=== PATIENT | male | born 1950 | race Caucasian/White ===

== ENCOUNTER → 2023-10-20 08:02 | Outpatient (REF) | payer OTHER, SELFPAY | LOC: RCS 08:02 | PROVIDERS: ATTENDING PHYSICIAN Internal Medicine Interventional Cardiology; FAMILY PHYSICIAN Family Medicine | DX: I48.91 Unspecified atrial fibrillation (principal) | CPT/HCPCS: 93306 ==

== ENCOUNTER 2023-11-17 11:59 | Emergency (ER) | payer OTHER, SELFPAY ==
[2023-11-17 12:12] VITALS: BP 127/60
--- NOTE | 2023-11-17 13:54 | ED.GENMED ---
History of Present Illness
General
Chief Complaint: Fall
Time Seen by Provider: 11/17/23 13:17
History of Present Illness
History of Present Illness:
73-year-old male with history of atrial fibrillation, hypertension, and hyperlipidemia presents to the emergency department for evaluation of right shoulder and elbow pain after a fall yesterday. States he fell onto his right side when he slipped
on the stairs, he did not strike his head. The fall occurred yesterday and at this time he denies any complaints of headaches, vision changes, or neck pain. He is having difficulty elevating the shoulder
Past History
Past History
ED Past Medical History: HTN
ED Past Surgical History: None
Social History
Tobacco: Non-smoker
Alcohol: None
Drug: None
Personal:
Living: with family
Employment: Retired
Family History
Family History: Other (Noncontributory)
Review of Systems
Review of Systems
Allergies reviewed?: Yes
All Other Systems: ROS reviewed and negative except as documented in HPI and ROS
Phy Exam
Physical Exam
Physical Exam:
GEN: Well appearing, NAD, WDWN
HEENT: Normocephalic and atraumatic, oral mucosa moist, no scleral icterus
Cardiac: Regular rate
Lung: No respiratory distress, no tachypnea
MSK: Moderate swelling to the right shoulder/deltoid region, ROM markedly limited. No deformity. No tenderness to R elbow, ROM normal. Focal tenderness to R PSIS, no deformity or swelling. No midline L spine tenderness
Skin: Good color, no pallor or jaundice, no rashes
Neuro: AO x3, moves all extremities freely
Psych: Calm, cooperative
Course
Orders/Labs/Results
Orders:
Orders
11/17/23 12:16
CR Elbow - Right Min 3 Views Urgent
Comment:
Reason For Exam: Injury/Trauma
CR Shoulder, Trauma - Right Urgent
Comment:
Reason For Exam: Injury/Trauma
Hip, Right 2-3 Views [CR Hip - RT w/wo Pel 2-3 Vw*] Urgent
Comment:
Reason For Exam: Injury/Trauma
Include a pelvis x-ray?: No
Vital Signs
Initial and Last Documented VS:
Initial Vital Signs
Temp Pulse Resp BP Pulse Ox
98.1 F 54 18 127/60 97
11/17/23 12:12 11/17/23 12:12 11/17/23 12:12 11/17/23 12:12 11/17/23 12:12
Last Documented Vital Signs
Temp Pulse Resp BP Pulse Ox
98.1 F 54 18 127/60 97
11/17/23 12:12 11/17/23 12:12 11/17/23 12:12 11/17/23 12:12 11/17/23 12:12
MDM/Problems Addressed
MDM/Problems Addressed:
Likely a intramuscular hematoma of the right deltoid worsening due to Eliquis. X-ray showed no evidence for osseous abnormality. Patient scheduled orthopedic follow-up in approximately 2 weeks which I feel to be appropriate. Discussed supportive
care
*Critical Care Note
Total Time (30-74mins, 75-104mins- exclusive of procedures): Not Applicable
ED Attending Note
-
Portions of this chart may have been created with voice recognition software.� Occasional wrong word or��sound alike� substitutions may have occurred due to the inherent limitations of voice recognition software.
Discharge Plan
Departure
Patient Disposition: Home (Routine Discharge)
Date of Disposition: 11/17/23
Time of Disposition: 13:57
Patient with high blood pressure during this ER visit?: No
Discharge Problem:
Contusion of right shoulder, Contusion of right hip
Instructions: Hematoma
Prescriptions:
No Action
multivitamin 1 EACH tablet
1 tab PO DAILY
atorvastatin 40 MG tablet
40 mg PO QPM
Eliquis 5 MG tablet
5 mg PO BID
famotidine 40 mg tablet
40 mg PO DAILY
amiodarone [Pacerone] 200 mg Tablet
200 mg PO BID Qty: 40 0RF
Rx Instructions:
Take 200 mg twice a day for 7 days then 1 tablet daily thereafter
Referrals:
Kevin Donahue MD [Active] -
Mary Teran MD [Family Provider] -
Activity Restrictions/Additional Instructions:
I suspect you have an intramuscular hematoma of the right shoulder due to the injury and your blood thinner use. Please ice the shoulder religiously to reduce swelling. Use the sling for at least the next week, make sure to remove the sling for at
least 1 hour/day to allow the shoulder and elbow to stretch
Follow-up with your industrial automation specialist
Interventions
Interventions:
*Risk Screen - Suicide Last Done: 11/17/23 12:12
*General Assessment Last Done: 11/17/23 12:12
*Neglect/Abuse Screening Last Done: 11/17/23 12:12
*ED COVID-19 Vaccine History Last Done: 11/17/23 12:12
*Nursing Disposition Last Done: 11/17/23 14:24
ED-Musculoskeletal Assessment Last Done: 11/17/23 13:23
ED- Neurological Assessment Last Done: 11/17/23 13:23
ED-Skin Assessment Last Done: 11/17/23 13:23
Discharge Date and Time
Discharge Date/Time: 11/17/23 14:24
Print Language: BELARUSIAN
== END 2023-11-17 14:24 | disposition home or self-care (01) ==
LOC: EMR 11:59
PROVIDERS: EMERGENCY PHYSICIAN Student in an Organized Health Care Education/Training Program; FAMILY PHYSICIAN Family Medicine
DX: S70.01XA Contusion of right hip, initial encounter (principal); S40.011A Contusion of right shoulder, initial encounter; W17.89XA Other fall from one level to another, initial encounter; I48.91 Unspecified atrial fibrillation; I10 Essential (primary) hypertension; E78.5 Hyperlipidemia, unspecified; Z79.01 Long term (current) use of anticoagulants
CPT/HCPCS: 99284; 73030; 73080; 73502

== ENCOUNTER 2023-12-31 00:12 | Emergency (ER) | payer OTHER, SELFPAY ==
[2023-12-31 00:14] VITALS: BP 108/56; BMI 25.1
[2023-12-31 00:16] VITALS: BP 108/56
--- NOTE | 2023-12-31 00:20 | ED.GENMED ---
History of Present Illness
<DAYNE Sepulveda - Last Filed: 12/31/23 05:52>
General
Chief Complaint: Blood Sugar Problem
Time Seen by Provider: 12/31/23 00:19
History of Present Illness
History of Present Illness:
Patient is a 73 year old male presenting to the ED complaining of a blood sugar problem and dizziness x 2 hours. He states it happened while he was sitting watching the [employer] game. Patient consumed a couple of alcoholic beverages and at around
10pm he got dizzy diaphoreticand had a bout of confusion. His glucose dropped and family states the confusion happened for a couple minutes but regained train of thought after that. The patient currently feels dizzy and claims he's felt dizzy
before, but he would drink Gatorade and it would alleviate the symptoms. Patient claims he has a sinus infection that he was placed on a neti pot and antibiotics for. Patient denies any chest pain sob palpitations numbness tingling.
Patient has a PMH of esophageal cancer HTN HLD but does denies any history of diabetes. Patient had a couple of alcoholic beverages tonight, but denies any smoking or illicit drug use. He's been cardioverted 2 times.
Past History
<DAYNE Sepulveda - Last Filed: 12/31/23 05:52>
Past History
ED Past Medical History: HTN
ED Past Surgical History: None
Social History
Tobacco: Non-smoker
Alcohol: None
Drug: None
Personal:
Living: with family
Employment: Retired
Family History
Family History: Other (Noncontributory)
Review of Systems
<DAYNE Sepulveda - Last Filed: 12/31/23 05:52>
Review of Systems
Constitutional: Reports no symptoms
Respiratory: Reports no symptoms
Cardiac: Reports no symptoms
Neurological: Reports dizzy
Phy Exam
<Brian Levi [facility] - Last Filed: 12/31/23 05:52>
Physical Exam
Physical Exam:
see physical
Cardiovascular Exam
Cardiovascular Exam: regular rate/rhythm, no edema, no gallop, no JVD and no murmur
Pulmonary Exam
Pulmonary Exam: lungs clear, no respiratory distress, no rales, chest non tender, no crackles, no rhonchi, no stridor, no wheezing and no cough
Course
<Brian Levi [facility] - Last Filed: 12/31/23 05:52>
Orders/Labs/Results
Orders:
Orders
12/31/23 00:20
Cardiac Monitoring- Treatment ONCE
12/31/23 00:21
Complete Blood Count/With Diff Urgent
12/31/23 00:32
EKG [Electrocardiogram (*1)] Urgent
Reason for Study: Vertigo / Dizzy
EKG- Treatment ONCE
12/31/23 00:41
Comprehensive Metabolic Panel Urgent
Comment: REDRAW
Abnormal Lab Results
12/31/23 12/31/23 12/31/23
00:21 00:41 03:15
RBC 4.08 L 10^6/uL
(4.70-6.10)
Hgb 12.4 L g/dL
(13.0-18.0)
Hct 35.6 L %
(39.0-52.0)
Absolute Monos (auto) 0.7 H 10^3/uL
(0.1-0.6)
Monocytes % 11.4 H %
(1.7-9.3)
Sodium 134 L mmol/L
(135-145)
Potassium 3.2 L mmol/L
(3.5-5.1)
Carbon Dioxide 20 L mmol/L
(22-30)
Creatinine 0.5 L mg/dL
(0.7-1.3)
Calcium 7.8 L mg/dl
(8.4-10.2)
ALT 67 H U/L
(0-50)
Total Protein 5.2 L g/dl
(6.3-8.2)
Albumin 3.2 L g/dl
(3.5-5.0)
POC Glucose 117 H mg/dl
(70-99)
12/31/23 00:21
12/31/23 00:41
Vital Signs
Initial and Last Documented VS:
Initial Vital Signs
Pulse Resp BP Pulse Ox
60 20 108/56 100
12/31/23 00:14 12/31/23 00:14 12/31/23 00:14 12/31/23 00:14
Last Documented Vital Signs
Temp Pulse Resp BP Pulse Ox
97.7 F 67 17 115/60 98
12/31/23 03:17 12/31/23 03:30 12/31/23 03:30 12/31/23 03:00 12/31/23 03:30
Lauralt;Micha Gibbons, DO - Last Filed: 12/31/23 03:41>
Orders/Labs/Results
Orders:
Orders
12/31/23 00:20
Cardiac Monitoring- Treatment ONCE
12/31/23 00:21
Complete Blood Count/With Diff Urgent
12/31/23 00:32
EKG [Electrocardiogram (*1)] Urgent
Reason for Study: Vertigo / Dizzy
EKG- Treatment ONCE
12/31/23 00:41
Comprehensive Metabolic Panel Urgent
Comment: REDRAW
Abnormal Lab Results
12/31/23 12/31/23 12/31/23
00:21 00:41 03:15
RBC 4.08 L 10^6/uL
(4.70-6.10)
Hgb 12.4 L g/dL
(13.0-18.0)
Hct 35.6 L %
(39.0-52.0)
Absolute Monos (auto) 0.7 H 10^3/uL
(0.1-0.6)
Monocytes % 11.4 H %
(1.7-9.3)
Sodium 134 L mmol/L
(135-145)
Potassium 3.2 L mmol/L
(3.5-5.1)
Carbon Dioxide 20 L mmol/L
(22-30)
Creatinine 0.5 L mg/dL
(0.7-1.3)
Calcium 7.8 L mg/dl
(8.4-10.2)
ALT 67 H U/L
(0-50)
Total Protein 5.2 L g/dl
(6.3-8.2)
Albumin 3.2 L g/dl
(3.5-5.0)
POC Glucose 117 H mg/dl
(70-99)
12/31/23 00:21
12/31/23 00:41
Vital Signs
Initial and Last Documented VS:
Initial Vital Signs
Pulse Resp BP Pulse Ox
60 20 108/56 100
12/31/23 00:14 12/31/23 00:14 12/31/23 00:14 12/31/23 00:14
Last Documented Vital Signs
Temp Pulse Resp BP Pulse Ox
97.7 F 67 17 115/60 98
12/31/23 03:17 12/31/23 03:30 12/31/23 03:30 12/31/23 03:00 12/31/23 03:30
Lauralt;DAYNE Sepulveda - Last Filed: 12/31/23 05:52>
MDM/Problems Addressed
Differential Diagnosis Includes:
hypoglycemia
MDM/Problems Addressed:
order blood work and get sugar levels back up
<DAYNE Sepulveda - Last Filed: 12/31/23 05:52>
*Critical Care Note
Total Time (30-74mins, 75-104mins- exclusive of procedures): Not Applicable
<Micha Gibbons DO - Last Filed: 12/31/23 03:41>
Update Note
Update Note:
EKG shows sinus bradycardia rate of 64 with PACs present. Left axis deviation present. Prolonged QT at 507 ms corrected. No evidence of acute ischemia present. When compared to previous EKG dated December 02, 2022, sinus bradycardia currently
below replaced sinus rhythm with first-degree AV block then.
ED Attending Note
<DAYNE Sepulveda - Last Filed: 12/31/23 05:52>
-
Portions of this chart may have been created with voice recognition software.� Occasional wrong word or��sound alike� substitutions may have occurred due to the inherent limitations of voice recognition software.
<Micha Gibbons DO - Last Filed: 12/31/23 03:41>
ED Attending Note
Patient seen and examined by attending physician: Yes
I performed the substantive portion of visit, reviewed & personally made and approve the management plan that is documented in note by myself or PRIYA.: Yes
ED Attending Note:
Pleasant 73-year-old male presents with hypoglycemia. He is suffering from esophageal cancer. He does not have a history of diabetes. He does admit to drinking alcohol while watching of the baseball game. He had a few Fritos but the last meal he
ate was at 230. He suspects he has had hypoglycemic events in the recent past because he has had similar feelings that were resolved with food. He states that when he gets dizzy he drinks Gatorade to alleviate the symptoms. Patient is on
antibiotics for a sinus infection at this point. Patient denies any chest pain or shortness of breath. Patient was seen in conjunction with the PA student. I have reviewed and agree with the history and treatment plan presented. On my
independent physical exam, patient is awake, alert, and oriented x3, no acute distress. He does have a port in his right chest. Lungs are clear to auscultation bilaterally without wheezes rales or rhonchi. Abdomen is soft and nontender
nondistended no hepatosplenomegaly.
Discharge Plan
Departure
Patient Disposition: Home (Routine Discharge)
Date of Disposition: 12/31/23
Time of Disposition: 03:36
Patient with high blood pressure during this ER visit?: Yes
Condition: Good
Discharge Problem:
Hypoglycemia
Instructions: Low Blood Sugar, Adult (DC)
Prescriptions:
No Action
atorvastatin 40 MG tablet
40 mg PO QPM
Eliquis 5 MG tablet
5 mg PO BID
ondansetron HCl [Zofran] 8 mg Tablet
8 mg PO Q8H PRN (Reason: nausea )
metoclopramide HCl 5 mg Tablet
5 mg PO TID
ascorbic acid (vitamin C) [Vitamin C] 500 mg Tablet
500 mg PO DAILY
pantoprazole 40 mg Tablet,Delayed Release (Dr/Ec)
40 mg PO DAILY
metoprolol succinate 25 mg Tablet Extended Release 24 Hr
12.5 mg PO BID
albuterol 90 mcg/actuation Aerosol
2 mcg INHALATION Q6
Referrals:
Mary Teran MD [Family Provider] -
Activity Restrictions/Additional Instructions:
It was a pleasure meeting you and taking part in your care. We hope for your continued healing and wellness.
Please read discharge instructions in their entirety. However, they are for general education and may not describe your exact diagnosis at discharge. Information on your ER visit and medical conditions were discussed with you along with appropriate
follow up information...
If indicated, please take your medications as instructed and indicated on discharge paperwork.
Please schedule a follow up appointment as directed. Call to schedule an appointment
Please return to the emergency department with ANY change in, persisting, or worsening of symptoms. If any of your symptoms do not improve, or persist, or become more severe within 6-12 hours, please return to the emergency department for further
care.
Please return to the emergency department if you develop a headache, neck pain/stiffness, fever greater than 100.4F, chest pain, shortness of breath, persistent nausea, vomiting, slurred speech, difficulty walking, numbness/tingling, weakness, signs
of infection or any other symptoms that are worrisome to you.
If you have any questions or concerns please do not hesitate to call the Hospital at or E-mail me directly at [email or web address]
Interventions
Interventions:
*Risk Screen - Suicide Last Done: 12/31/23 00:14
*General Assessment Last Done: 12/31/23 00:14
*Neglect/Abuse Screening Last Done: 12/31/23 00:14
ED- Fall Risk Assessment Last Done: 12/31/23 00:51
*ED COVID-19 Vaccine History Last Done: 12/31/23 00:14
*Nursing Disposition Last Done: 12/31/23 03:57
ED- Neurological Assessment Last Done: 12/31/23 00:24
Discharge Date and Time
Discharge Date/Time: 12/31/23 04:01
Print Language: ARMENIAN
[2023-12-31 00:31] LABS: % Basophils 1.1 % (0-2); % Immature Granulocytes 0.2 % (0-0.5); % Monocytes 11.4 % (1.7-9.3); % Neutrophils 50.3 % (42.2-75.2); Absolute Eosinophils 0.3 10^3/uL (0-0.7); Absolute Monocytes 0.7 10^3/uL (0.1-0.6); Absolute Neutrophils 3.2 10^3/uL (1.4-6.5); Hematocrit 35.6 % (39.0-52.0); Hemoglobin 12.4 g/dL (13.0-18.0); Mean Corp Hgb Conc. 34.8 g/dL (33.0-37.0); Mean Corpuscular Hgb 30.4 pg (27.0-31.0); Mean Corpuscular Volume 87.3 fL (80.0-94.0); Platelet Count 139 10^3/uL (130-400); Red Blood Cell Count 4.08 10^6/uL (4.70-6.10); Red Cell Dist. Width 13.6 % (11.5-14.5); White Blood Cell Count 6.3 10^3/uL (4.8-10.8)
[2023-12-31 00:32] LABS: Absolute Basophils 0.1 10^3/uL (0-0.2); Nucleated Red Blood Cells % 0 % (-)
[2023-12-31 00:43] LABS: Glucose - Point of Care 93 mg/dl (70-99)
[2023-12-31 01:00] VITALS: BP 106/60
[2023-12-31 02:00] VITALS: BP 111/55
[2023-12-31 03:00] VITALS: BP 115/60
--- NOTE | 2023-12-31 03:10 | DOWNTIME ---
There was a [employer] Downtime on 12/31/2023 from 0100 to 12/31/2023 at 0300. Downtime documentation of patient's care, including medication administrations, has been reconciled in the electronic record per guidelines. Refer to the
patient's paper chart under the miscellaneous tab to see printed paper medication records and downtime forms.
[2023-12-31 03:11] LABS: ALT (SGPT) 67 U/L (0-50); AST (SGOT) 52 U/L (17-59); Albumin 3.2 g/dl (3.5-5.0); Alkaline Phosphatase 80 U/L (38-126); Blood Urea Nitrogen 11 mg/dl (9-20); Calcium 7.8 mg/dl (8.4-10.2); Carbon Dioxide 20 mmol/L (22-30); Chloride 102 mmol/L (98-107); Estimated Creatinine Clearance 112 ml/min; Glucose 77 mg/dl (70-99); Potassium 3.2 mmol/L (3.5-5.1); Sodium 134 mmol/L (135-145); Total Bilirubin 0.4 mg/dl (0.2-1.3); Total Protein 5.2 g/dl (6.3-8.2); eGFR > 60.00
[2023-12-31 03:16] LABS: Glucose - Point of Care 117 mg/dl (70-99)
== END 2023-12-31 04:01 | disposition home or self-care (01) ==
LOC: EMR 00:12
PROVIDERS: EMERGENCY PHYSICIAN Student in an Organized Health Care Education/Training Program; FAMILY PHYSICIAN Family Medicine
DX: R42 Dizziness and giddiness (principal); R61 Generalized hyperhidrosis; E16.2 Hypoglycemia, unspecified; J01.90 Acute sinusitis, unspecified; R00.1 Bradycardia, unspecified; C15.9 Malignant neoplasm of esophagus, unspecified; I10 Essential (primary) hypertension; E78.5 Hyperlipidemia, unspecified; Z79.01 Long term (current) use of anticoagulants
CPT/HCPCS: 99283; 80053; 82962; 85025; 93005

== ENCOUNTER → 2024-01-09 10:44 | Outpatient (REF) | payer OTHER, SELFPAY | LOC: HWRAD 10:44 | PROVIDERS: ATTENDING PHYSICIAN Family Medicine | DX: C15.5 Malignant neoplasm of lower third of esophagus (principal); R09.89 Other specified symptoms and signs involving the circulatory and respiratory systems | CPT/HCPCS: 71046 ==

== ENCOUNTER → 2024-01-23 09:57 | Outpatient (REF) | payer OTHER, SELFPAY | LOC: HWRAD 09:57 | PROVIDERS: ATTENDING PHYSICIAN Chiropractor; FAMILY PHYSICIAN Family Medicine | DX: M54.6 Pain in thoracic spine (principal); R07.82 Intercostal pain; M53.2X7 Spinal instabilities, lumbosacral region | CPT/HCPCS: 71111; 72072; 72110 ==

== ENCOUNTER 2024-08-11 00:53 | Inpatient (IN) | payer OTHER, SELFPAY ==
[2024-08-10] VITALS (20 sets, daily range): BP systolic 93–159; BP diastolic 64–90; BMI 24.0
[2024-08-10 17:04] LABS: % Basophils 0.4 % (0-2); % Eosinophils 2.5 % (0-6); % Immature Granulocytes 0.8 % (0-0.5); % Lymphocytes 21.6 % (20.5-51.1); % Monocytes 9.9 % (1.7-9.3); % Neutrophils 64.8 % (42.2-75.2); Absolute Eosinophils 0.1 10^3/uL (0-0.7); Absolute Monocytes 0.5 10^3/uL (0.1-0.6); Absolute Neutrophils 3.1 10^3/uL (1.4-6.5); Hematocrit 41.8 % (39.0-52.0); Hemoglobin 14.6 g/dL (13.0-18.0); Mean Corp Hgb Conc. 34.9 g/dL (33.0-37.0); Mean Corpuscular Hgb 32.2 pg (27.0-31.0); Mean Corpuscular Volume 92.1 fL (80.0-94.0); Mean Platelet Volume 10.2 fL (7.4-10.4); Nucleated Red Blood Cells % 0 % (-); Platelet Count 130 10^3/uL (130-400); Red Blood Cell Count 4.54 10^6/uL (4.70-6.10); Red Cell Dist. Width 15.3 % (11.5-14.5); White Blood Cell Count 4.8 10^3/uL (4.8-10.8)
[2024-08-10 17:07] LABS: APTT 26.1 Sec (23.4-35.0); INR 1.12; PT 14.7 Sec (11.4-14.6)
[2024-08-10 17:17] LABS: ALT (SGPT) 163 U/L (0-50); AST (SGOT) 104 U/L (17-59); Albumin 2.8 g/dl (3.5-5.0); Alkaline Phosphatase 102 U/L (38-126); Blood Urea Nitrogen 12 mg/dl (9-20); Calcium 8.2 mg/dl (8.4-10.2); Carbon Dioxide 28 mmol/L (22-30); Chloride 104 mmol/L (98-107); Glucose 98 mg/dl (70-99); Potassium 5.2 mmol/L (3.5-5.1); Sodium 134 mmol/L (135-145); Total Bilirubin 0.5 mg/dl (0.2-1.3); Total Protein 4.6 g/dl (6.3-8.2); eGFR > 60.00
[2024-08-10 17:22] LABS: Troponin I < 0.012 ng/ml
--- NOTE | 2024-08-10 18:38 | ED.GENMED ---
History of Present Illness
<YVON Lau - Last Filed: 08/11/24 00:17>
General
Chief Complaint: Chest Pain
Source: patient and spouse
Exam Limitations: none
Time Seen by Provider: 08/10/24 17:58
Nursing documentation reviewed up to this point in time: agreed with
History of Present Illness
History of Present Illness:
Patient is a 74-year-old male with past medical history of A-fib on Eliquis, hypertension hyperlipidemia esophageal cancer. Patient had initial chemoradiation and then surgery in 2022 however is presently also getting chemo again scheduled for last
treatment next week. Patient reports he was sleeping and then was awoken by chest pain in his anterior chest in his anterior neck around 1 PM. He does have pain when he takes deep breath. He h however denies any shortness of breath. He denies
any injury. He denies any recent illness fevers or cough.
He had a previous cardioversion in 2022 for A-fib. HE is on Eliquis and has not skipped a dose.
Past History
<YVON Lau - Last Filed: 08/11/24 00:17>
Past History
ED Past Medical History: HTN
ED Past Surgical History: None
Social History
Tobacco: Non-smoker
Alcohol: None
Drug: None
Personal:
Living: with family
Employment: Retired
Family History
Family History: Other (Noncontributory)
Review of Systems
<YVON Lau - Last Filed: 08/11/24 00:17>
Review of Systems
Allergies reviewed?: Yes
All Other Systems: ROS reviewed and negative except as documented in HPI and ROS
Constitutional: Reports no symptoms; Denies fever, fatigue or chills
Respiratory: Reports no symptoms and other (anterior chest pain with deep breath ); Denies trouble breathing
Cardiac: Reports chest pain
ABD/GI: Reports no symptoms; Denies abdominal pain, nausea or vomiting
: Reports no symptoms
Musculoskeletal: Reports no symptoms
Skin: Reports no symptoms
Neurological: Reports no symptoms
Psychiatric: Reports no symptoms
Phy Exam
<YVON Lau - Last Filed: 08/11/24 00:17>
General Physical Exam
General Presentation: no apparent distress
General age: appears stated age
General Skin: warm and dry
General Habitus: elderly
General Mental: alert
General Hydration: dry mucous membranes
Cardiovascular Exam
Cardiovascular Exam: irregularly irregular and tachycardia
Pulmonary Exam
Pulmonary Exam: lungs clear and no respiratory distress
Neurological Exam
Neurological Exam: alert and oriented x3
Musculoskeletal Exam
Musculoskeletal Exam: full ROM
Skin Exam
Skin Exam: normal color and warm/dry
Psychiatric Exam
Psychiatric Exam: normal mood/affect
Scores
<YVON Lau - Last Filed: 08/11/24 00:17>
Heart Score for Chest Pain Patients
STEMI patient?: Not applicable
Course
<YVON Lau - Last Filed: 08/11/24 00:17>
Orders/Labs/Results
Orders:
Orders
08/10/24 16:36
EKG [Electrocardiogram (*1)] Urgent
Reason for Study: Chest Pain
EKG- Treatment ONCE
08/10/24 16:50
Complete Blood Count/With Diff Urgent
Comprehensive Metabolic Panel Urgent
Protime/PTT Urgent
Troponin I Urgent
08/10/24 18:40
CT Chest PE Study Urgent
Comment:
Reason For Exam: cp hx of esophageal cancer/chemo
0.9% Sodium Chloride 1000 ml [Nss] 1,000 ml IV BOLUS
08/10/24 20:21
EKG [Electrocardiogram (*1)] Urgent
Reason for Study: Chest Pain
EKG- Treatment ONCE
Troponin I Urgent
08/10/24 20:29
Acetaminophen 1000MG/100Ml [Ofirmev] 1,000 mg in 100 ml IV ONCE
Acetaminophen IV Indication:: ED Narcotic Naive Pt-ONCE
08/10/24 22:57
Etomidate [Amidate 20 mg] 10 mg IV NOW STA
08/10/24 23:00
Flush (0.9% Sodium Chloride) [Flush (Nss)] See Dose Instructions IV PER PROTOCOL
08/10/24 23:15
Electrocardiogram (*1) Urgent
Reason for Study: Atrial Fibrillation
EKG- Treatment ONCE
08/11/24 00:00
Admit/Transfer Patient As Directed
Co-Sign Provider:
Level of Care: Inpatient admission
Assign to:: IVU
Physician / Group: Josefina Cummins
Diagnosis: atrial fibrillation RVR, hyperkalemia
Reason for Hospitalization: atrial fibrillation RVR, hyperkalemia
Expected length of stay greater than two midnights?: Yes
ELOS- Estimated Length of Stay in days: 3
I certify the patient meets the requirements for IP care: Yes
08/11/24 00:02
PRN Pain Medication Management As Directed
May give lesser potent ordered pain med per pt: Yes
preference::
Protocol:: Medication orders for pain may be administered in a
manner that supports deferring to patient preference
when the pt is:
- Requesting an ordered lesser potent pain medication.
Least to most potent pain medications are defined
as: acetaminophen < NSAID < tramadol < opioids
(morphine, oxycodone, hydromorphone).
- Requesting a lesser dose of the same medication IF
ORDERED.
- Requesting a less intrusive route of administration
if both routes are prescribed by the provider (PO <
IV).
08/11/24 00:04
Code Status As Directed
Resuscitation Status: Full Code
08/11/24 00:15
Diltiazem 125 mg/125 ml Nss [Cardizem] 125 mg in 125 ml IV PER PROTOCOL
Initial dose in mg/hr, then titrate:: 5
Titrate to keep:: Heart rate 80-100 bpm
Titrate by mg/hr:: 5 mg/hr
Frequency of titrations (minutes):: 15
Maximum dose in mg/hr:: 15
Abnormal Lab Results
08/10/24
16:50
RBC 4.54 L 10^6/uL
(4.70-6.10)
MCH 32.2 H pg
(27.0-31.0)
RDW 15.3 H %
(11.5-14.5)
Absolute Lymphs (auto) 1.0 L 10^3/uL
(1.2-3.4)
Immature Gran % 0.8 H %
(0-0.5)
Monocytes % 9.9 H %
(1.7-9.3)
PT 14.7 H Sec
(11.4-14.6)
Sodium 134 L mmol/L
(135-145)
Potassium 5.2 H mmol/L
(3.5-5.1)
Creatinine 0.5 L mg/dL
(0.7-1.3)
Calcium 8.2 L mg/dl
(8.4-10.2)
AST 104 H U/L
(17-59)
ALT 163 H U/L
(0-50)
Total Protein 4.6 L g/dl
(6.3-8.2)
Albumin 2.8 L g/dl
(3.5-5.0)
08/10/24 16:50
08/10/24 16:50
Vital Signs
Initial and Last Documented VS:
Initial Vital Signs
Temp Pulse Resp Pulse Ox
97.8 F 60 18 96
08/10/24 16:37 08/10/24 16:37 08/10/24 16:37 08/10/24 16:37
Last Documented Vital Signs
Temp Pulse Resp BP Pulse Ox
97.9 F 114 10 100/79 96
08/11/24 00:00 08/11/24 00:00 08/11/24 00:00 08/11/24 00:00 08/11/24 00:00
Practice Advisor consulted with Physician
Practice Advisor consulted with physician?: Yes
Name of Physician Consulted: favio
<Donald Stahl MD - Last Filed: 08/10/24 23:17>
Orders/Labs/Results
Orders:
Orders
08/10/24 16:36
EKG [Electrocardiogram (*1)] Urgent
Reason for Study: Chest Pain
EKG- Treatment ONCE
08/10/24 16:50
Complete Blood Count/With Diff Urgent
Comprehensive Metabolic Panel Urgent
Protime/PTT Urgent
Troponin I Urgent
08/10/24 18:40
CT Chest PE Study Urgent
Comment:
Reason For Exam: cp hx of esophageal cancer/chemo
0.9% Sodium Chloride 1000 ml [Nss] 1,000 ml IV BOLUS
08/10/24 20:21
EKG [Electrocardiogram (*1)] Urgent
Reason for Study: Chest Pain
EKG- Treatment ONCE
Troponin I Urgent
08/10/24 20:29
Acetaminophen 1000MG/100Ml [Ofirmev] 1,000 mg in 100 ml IV ONCE
Acetaminophen IV Indication:: ED Narcotic Naive Pt-ONCE
08/10/24 22:57
Etomidate [Amidate 20 mg] 10 mg IV NOW STA
08/10/24 23:00
Flush (0.9% Sodium Chloride) [Flush (Nss)] See Dose Instructions IV PER PROTOCOL
08/10/24 23:15
Electrocardiogram (*1) Urgent
Reason for Study: Atrial Fibrillation
EKG- Treatment ONCE
08/11/24 00:00
Admit/Transfer Patient As Directed
Co-Sign Provider:
Level of Care: Inpatient admission
Assign to:: IVU
Physician / Group: Josefina Cummins
Diagnosis: atrial fibrillation RVR, hyperkalemia
Reason for Hospitalization: atrial fibrillation RVR, hyperkalemia
Expected length of stay greater than two midnights?: Yes
ELOS- Estimated Length of Stay in days: 3
I certify the patient meets the requirements for IP care: Yes
08/11/24 00:02
PRN Pain Medication Management As Directed
May give lesser potent ordered pain med per pt: Yes
preference::
Protocol:: Medication orders for pain may be administered in a
manner that supports deferring to patient preference
when the pt is:
- Requesting an ordered lesser potent pain medication.
Least to most potent pain medications are defined
as: acetaminophen < NSAID < tramadol < opioids
(morphine, oxycodone, hydromorphone).
- Requesting a lesser dose of the same medication IF
ORDERED.
- Requesting a less intrusive route of administration
if both routes are prescribed by the provider (PO <
IV).
08/11/24 00:04
Code Status As Directed
Resuscitation Status: Full Code
08/11/24 00:15
Diltiazem 125 mg/125 ml Nss [Cardizem] 125 mg in 125 ml IV PER PROTOCOL
Initial dose in mg/hr, then titrate:: 5
Titrate to keep:: Heart rate 80-100 bpm
Titrate by mg/hr:: 5 mg/hr
Frequency of titrations (minutes):: 15
Maximum dose in mg/hr:: 15
Abnormal Lab Results
08/10/24
16:50
RBC 4.54 L 10^6/uL
(4.70-6.10)
MCH 32.2 H pg
(27.0-31.0)
RDW 15.3 H %
(11.5-14.5)
Absolute Lymphs (auto) 1.0 L 10^3/uL
(1.2-3.4)
Immature Gran % 0.8 H %
(0-0.5)
Monocytes % 9.9 H %
(1.7-9.3)
PT 14.7 H Sec
(11.4-14.6)
Sodium 134 L mmol/L
(135-145)
Potassium 5.2 H mmol/L
(3.5-5.1)
Creatinine 0.5 L mg/dL
(0.7-1.3)
Calcium 8.2 L mg/dl
(8.4-10.2)
AST 104 H U/L
(17-59)
ALT 163 H U/L
(0-50)
Total Protein 4.6 L g/dl
(6.3-8.2)
Albumin 2.8 L g/dl
(3.5-5.0)
08/10/24 16:50
08/10/24 16:50
Vital Signs
Initial and Last Documented VS:
Initial Vital Signs
Temp Pulse Resp Pulse Ox
97.8 F 60 18 96
08/10/24 16:37 08/10/24 16:37 08/10/24 16:37 08/10/24 16:37
Last Documented Vital Signs
Temp Pulse Resp BP Pulse Ox
97.9 F 114 10 100/79 96
08/11/24 00:00 08/11/24 00:00 08/11/24 00:00 08/11/24 00:00 08/11/24 00:00
Procedures
<YVON Lau - Last Filed: 08/11/24 00:17>
Moderate Sedation
ASA Risk Score: Class III
Chart and allergies reviewed: Yes
Consent for anesthesia obtained: Yes
Time out completed (validating right patient & procedure): Yes
Moderate Sedation Start Time(when first medication is given): 23:10
History of difficult intubation: No
Airway free of obstruction: Yes
Patient has a gag reflex: Yes
Patient is able to open mouth: Yes
Patient has no dentures: Yes
Patient has no loose teeth: Yes
Medication administered by Provider during Moderate Sedation: Other (etomidate )
Total dose administered: 7
Time drug administered: 23:09
Moderate Sedation Procedure End Time: 23:25
Cardioversion
Indication:: Afib
Performed by:: Favio/ Myke
Synchronized?: Yes
Energy Used: 200 joules
Number of attempts: 2
Successful?: No
ASA Risk Score: Class III
Any reaction or bad outcome to prior sedation/anesthesia?: No history of a reaction
Sedation level to be attained: moderate
Chart and allergies reviewed: Yes
Patient reassessed prior to sedation: Yes
Time out completed at (validating right patient & procedure): 23:10
History of difficult intubation: No
Airway free of obstruction: Yes
Patient has a gag reflex: Yes
Patient is able to open mouth: Yes
Patient has no dentures: Yes
Patient has no loose teeth: Yes
Medication administered by Provider during Moderate Sedation: Other (etomidate )
Total dose administered: 7
Time drug administered: 23:09
Start Time: 23:10
Stop Time: 23:25
<YVON Lau - Last Filed: 08/11/24 00:17>
MDM/Problems Addressed
Differential Diagnosis Includes:
Not limited to ACS, PE, rapid A-fib dehydration
MDM/Problems Addressed:
As documented patient is a 74-year-old male with past medical history of A-fib esophageal cancer currently being treated chemotherapy presents for chest pain. Patient reports chest pain is anterior chest anterior neck started at 1 PM while
sleeping. Patient reports pain is worse with taking a deep breath. He presents very pleuritic. Though he does have a history of A-fib he is not aware when he goes in it. He did present here in A-fib. He is anticoagulated. He has had 2 negative
cardiac troponins.; With tachycardia and poor chest pain CT ordered due PE risk associate with his cancer . CAT scan shows no upper lobe PE no central PE there is interstitial thickening and bronchial opacity consistent mucous plugging in the
right posterior lung base there is scarring in the right middle lobe there is a parenchymal consolidation in the right posterior lobe which could represent atelectasis or pneumonia. Patient however has no white count no fever.
Family reports that patient was previously cardioverted in 2022 however 2 weeks ago they believe he may have went back into A-fib as his GI doctor was concerned about this during an exam.
Patient remains in A-fib tachycardic despite 1 L of fluids. Patient's blood pressure 99/65 we will hold off on metoprolol and Cardizem. Patient was evaluated by ED physician as discussed will give another 250 bolus. Patient will need admission
for continued pleuritic pain. Patient's second cardiac troponin is negative. He did receive Ofirmev which did improve his symptoms of chest discomfort.
Will hold off on antibx at this time however will discuss with admitting hospitalist.
As discussed with admitting hospitalist attempted cardioversion x 2 however unsuccessful patient remains in A-fib however blood pressure improved.
Chronic conditions affecting care:
Esophageal cancer on chemotherapy, atrial fibrillation on Eliquis
<YVON Lau - Last Filed: 08/11/24 00:17>
*Pulse Oximetry
Patient hypoxic: no
*EKG
Interpreted by ED Provider?: Yes
Heart Rate: 107
Rate: tachycardiac
Rhythm: a-fib
Ischemia: non-specific ST changes
*Critical Care Note
Total Time (30-74mins, 75-104mins- exclusive of procedures): Not Applicable
ED Attending Note
<YVON Lau - Last Filed: 08/11/24 00:17>
-
Portions of this chart may have been created with voice recognition software.� Occasional wrong word or��sound alike� substitutions may have occurred due to the inherent limitations of voice recognition software.
<Donald Stahl MD - Last Filed: 08/10/24 23:17>
ED Attending Note
Patient seen and examined by attending physician: Yes
I performed the substantive portion of visit, reviewed & personally made and approve the management plan that is documented in note by myself or PRIYA.: Yes
ED Attending Note:
I have seen and evaluated the patient with a [id number] encounter. I have spoken to the [HYDROMETEOROLOGIST] and involved in the medical history, the physical exam, medical decision making.
Evaluation and management service: agree unless noted differently below.
Results interpretation: agree unless noted differently below.
74-year-old man presenting to the emergency department with chest pain. He does have a history of esophageal cancer on chemotherapy, A-fib on Eliquis. States that he did a pleuritic chest pain around 1 PM. Denies any shortness of breath. No
nausea or vomiting. Has not missed doses of his Eliquis. It is not positional it is not pleuritic. He is never had this pain before. During my evaluations patient's heart rate on the monitor is anywhere from the 1 teens to the 150s. He is in
A-fib. Exam does show mild edema bilaterally. No significant pulmonary lung exam findings. Concern for PE given patient's history. Could be atypical ACS versus pulmonary edema. Patient is not symptomatic from his A-fib so less likely to be
contributing. Blood work obtained was unremarkable. Will obtain delta troponin. Will obtain CT PE. Will hold off rate control until PE scan is obtained as he is asymptomatic.
CT scan is negative for PE. Does have possible pneumonia as well as pleural effusion. Patient is afebrile with normal white count so we will hold off on antibiotics. Patient will need admission. On repeat evaluation patient is now hypotensive
with systolic in the 90s and heart rate A-fib in the 130s. We did give additional IV fluids with no response. after shared decision making we will proceed with cardioversion. Unfortunately cardioversion x2 unsuccesful. He did appear to have a
pause with a few sinus beats and PACs but then went back into afib. He did receive IVF during procedure. pt BP is much improved in the 120s and HR has decreased to the low 100s. Pt remains asymptomatic. Please see note above.
Discharge Plan
Departure
Patient Disposition: Admit
Date of Disposition: 08/10/24
Time of Disposition: 22:35
Admit to: Telemetry
Admit to doctor: hospitalist
Presentation/result/management discussed w/ accepting MD/DO: Hospitalist
Patient with high blood pressure during this ER visit?: Yes
Condition: Fair
Covid-19: Not Applicable
Discharge Problem:
Chest pain, Atrial fibrillation
Prescriptions:
No Action
atorvastatin 40 MG tablet
40 mg PO QPM
Eliquis 5 MG tablet
5 mg PO BID
ondansetron HCl [Zofran] 8 mg Tablet
8 mg PO Q8H PRN (Reason: nausea )
ascorbic acid (vitamin C) [Vitamin C] 500 mg Tablet
500 mg PO DAILY
metoprolol succinate 25 mg Tablet Extended Release 24 Hr
12.5 mg PO BID
albuterol 90 mcg/actuation Aerosol
2 mcg INHALATION Q6
prochlorperazine maleate [Compazine] 10 mg Tablet
10 mg PO Q6H PRN (Reason: nausea/vomiting )
docusate sodium [Colace] 100 mg Capsule
100 mg PO DAILY
dexamethasone 8 mg tablet
8 mg PO BID
Rx Instructions:
to be taken on days 2, 3 and 4 post chemo
Referrals:
Mary Teran MD [Family Provider] -
Interventions
Interventions:
*Risk Screen - Suicide Last Done: 08/10/24 16:37
*General Assessment Last Done: 08/10/24 16:37
*Neglect/Abuse Screening Last Done: 08/10/24 16:37
*ED- Fall Risk Assessment Last Done: 08/10/24 18:32
*ED COVID-19 Vaccine History Last Done: 08/10/24 16:37
ED- Cardiac Assessment Last Done: 08/10/24 18:42
Discharge Date and Time
Print Language: CITIZEN [place]
[2024-08-10] MEDS: NSS 1000 IV (18:50)
[2024-08-10] MEDS: OFIRMEV 100 IV (20:55)
[2024-08-10 20:58] LABS: Troponin I < 0.012 ng/ml
[2024-08-10] MEDS: AMIDATE 20 MG 10 MG IV (23:02)
--- NOTE | 2024-08-10 23:18 | HPS.HSE ---
Family Physician
-
Family Physician: Mary Teran
Chief Complaint
-
chest pain
History of Present Illness
Patient is a 74-year old male with past medical history significant for paroxysmal atrial fibrillation, Hx melanoma, Hx CLL, esophageal cancer, essential hypertension and hyperlipidemia who presented to [facility] ED for evaluation of acute onset chest
pain. Patient reports being woken with chest pain this afternoon around 1300. Chest pain located anterior midsternal and base of neck, worse with deep breathing, does not radiate. Patient denies any recent illness, fevers, chills, cough, shortness
of breath, chest pain, nausea, vomiting, constipation, diarrhea or urinary symptoms.
Medical History
Past Medical History
Past Medical History: Reports Other
Additional Past Medical History:
Paroxysmal atrial fibrillation
History of melanoma
History of CLL
esophageal cancer
Essential hypertension
Hyperlipidemia
Past Surgical History: Reports Other
Additional Past Surgical History:
Shoulder repair October 2020 for rotator cuff
Cardioversion December 2020 and September 2022
esophagectomy with gastric pull-through
Social History
Tobacco: Non-smoker
Alcohol: Occasional
Drug: None
Personal:
Living: With Family
Family History
Family History: Other (Father had heart problems, mother had colon cancer)
Allergies / Home Medications
Allergies reflects when Allergies were last updated in Me[employer].
Home Medications with original date entered in Me[employer]
Allergy/Medication List:
Allergies
Allergy/AdvReac Type Severity Reaction Status Date / Time
No Known Allergies Allergy Verified 12/31/23 00:27
Home Medications
apixaban 5 mg tablet (Eliquis) 5 mg PO BID blood thinner 10/11/20
atorvastatin 40 mg tablet 40 mg PO QPM High Cholesterol 10/11/20
albuterol 90 mcg/actuation aerosol inhaler 2 mcg inhalation Q6 12/31/23
ascorbic acid (vitamin C) 500 mg tablet (Vitamin C) 500 mg PO DAILY 12/31/23
metoprolol succinate 25 mg tablet,extended release 24 hr 12.5 mg PO BID 12/31/23
ondansetron HCl 8 mg tablet 8 mg PO Q8H PRN nausea 12/31/23
dexamethasone 8 mg PO BID 08/10/24
docusate sodium 100 mg capsule (Colace) 100 mg PO DAILY 08/10/24
prochlorperazine maleate 10 mg tablet (Compazine) 10 mg PO Q6H PRN nausea/vomiting 08/10/24
Review of Systems
-
History Source: Patient
Constitutional: Reports No Symptoms
EENT: Reports No Symptoms
Respiratory: Reports No Symptoms
Cardiac: Reports Chest Pain
Abdomen/GI: Reports No Symptoms
: Reports No Symptoms
Musculoskeletal: Reports No Symptoms
Skin: Reports No Symptoms
Neurological: Reports No Symptoms
Endocrine: Reports No Symptoms
Hematologic/Lymphatic: Reports No Symptoms
Psych: Reports No Symptoms
Physical Exam
Vital Signs
Vital Signs
Temp Pulse Resp BP Pulse Ox
97.8 F 130 23 99/75 99
08/10/24 16:37 08/10/24 22:17 08/10/24 22:17 08/10/24 22:17 08/10/24 22:17
Physical Exam
General: Well Developed, Well Nourished, No Apparent Distress, Comfortable and Conversant
HEENT: NormoCephalic, Moist mucous membranes, Atraumatic, Broxton Conjunctivae, Nose Appears Normal and Ears Appear Normal
Respiratory: Clear
Cardiac: S1/S2, Irregular Rhythm and Tachycardia
Breast: Deferred by me
GI: Soft, Non Tender, Non Distended and Normal Bowel Sounds
Rectal: Deferred by Provider
Genito-urinary: Deferred by me
Musculoskeletal: No Clubbing, No Cyanosis and No Edema
Skin: Warm and IV/Catheter Site
Neuro: Awake, Alert, AO x 3 and Nonfocal/grossly intact
Psych: Calm and Intact Judgment/Insight
Laboratory Results
-
08/10/24 16:50
08/10/24 16:50
Laboratory Results
PT 14.7 Sec (11.4-14.6) H 08/10/24 16:50
INR 1.12 08/10/24 16:50
APTT 26.1 Sec (23.4-35.0) 08/10/24 16:50
Total Bilirubin 0.5 mg/dl (0.2-1.3) 08/10/24 16:50
AST 104 U/L (17-59) H 08/10/24 16:50
ALT 163 U/L (0-50) H 08/10/24 16:50
Alkaline Phosphatase 102 U/L (38-126) 08/10/24 16:50
Troponin I < 0.012 ng/ml 08/10/24 20:21
Data Reviewed
-
CT Scan: Report Reviewed by me
Medical Tests (Nuc Med, Echo, EKG etc): Report Reviewed by me
Lab Data: Labs Reviewed by me
Impression/Plan
-
IMPRESSION/PLAN:
#chest pain
#Paroxysmal atrial fibrillation RVR
cardioversion attempted x2
EKG: ATRIAL FIBRILLATION WITH RAPID VENTRICULAR RESPONSE WITH PREMATURE VENTRICULAR OR ABERRANTLY CONDUCTED COMPLEXES
LOW VOLTAGE QRS
CANNOT RULE OUT ANTERIOR INFARCT , AGE UNDETERMINED
Chest CT: Respiratory motion degradation results in nondiagnostic assessment in the left lower lobe with beyond the segmental level as result of a misregistration artifact. There is also mild
respiratory motion degradation in the right lower lobe, without evidence of pulmonary embolism with confidence to the proximal subsegmental divisions; nondiagnostic assessment
of the more distal subsegmental divisions.
No upper lobe pulmonary embolism identified, bilaterally.
No central pulmonary embolism.
Pulmonary artery branching order level of the most proximal pulmonary embolism: N/A
Previous esophagectomy with gastric pull-through.
Moderate left and relatively minor right pleural effusion.
Interstitial thickening and intraluminal bronchial opacity consistent with mucous plugging in the posterior right lung base. There is also mild parenchymal consolidation in the posterior
right lower lobe, which could represent atelectasis or pneumonia. Mild linear parenchymal stranding, likely scarring in the right middle lobe.
- Admit to IVU
- Consult Cardiology
- diltiazem gtt (consider to d/c if SBP <90)
- IVF
- trend troponin
- continue Eliquis and metoprolol
#esophageal cancer
s/p chemo and esophagectomy with gastric pull-through (2022)
currently on chemo with last round scheduled next Friday
Treatment at [facility] in [place]
- continue to follow up with oncology out patient
#Essential hypertension
- continue metoprolol
#Hyperlipidemia
- continue atorvastatin
#History of melanoma
#History of CLL
Code status: Full Code
DVT prophylaxis: Eliquis
[2024-08-11] VITALS (27 sets, daily range): BP systolic 66–118; BP diastolic 59–92; BMI 23.5
--- NOTE | 2024-08-11 00:06 | W.PN.UPDATE ---
Update Note
Progress Note Update
Patient seen in conjunction with SLUDGE CONTROL ATTENDANT. I agree with the findings and seems ago. I concur with the assessment and plan unless stated otherwise.
Briefly, this is a 74-year-old male with past medical history significant for atrial fibrillation on anticoagulation with Eliquis, esophageal cancer status post resection and on chemotherapy with FOLFOX plus immune adjuvant, last chemo 1 week ago
presenting to the emergency department with acute episode of chest pain that woke him from sleep.
Patient reports awaking at 1 PM with substernal chest burning pain and pressure. He denies any radiation nausea vomiting or diaphoresis. EMS immediately called and patient was transferred to the emergency department. He denies any antecedent
cough or fevers or chills. He does report recent bilateral trace lower extremity edema since initiation of his chemotherapy. Patient denies any prior history of CAD. He reports compliance with his Eliquis. He also reports compliance with his
metoprolol.
In the ED he had attempted cardioversion x 2. He did reduce his rate to the low 120s and since the cardioversion the patient chest discomfort has subsided and currently denies any significant chest discomfort.
On arrival in the emergency department he was tachycardic to the 130s and 140s, initial blood pressure was 90 systolic. He was satting 97% and ECG shows atrial fibrillation at rate of 130. Troponin was 0.012.
CBC was unremarkable with normal white count and normal hemoglobin and platelets. Electrolytes had a potassium of 5.2 but otherwise unremarkable. BUN and creatinine were normal. LFTs show some mild transaminitis with AST in the low 100s and ALT
of 163. Bilirubin was negative.
CT PE study was a poor study but was negative for PE. There is also mild respiratory motion degradation in the right lower lobe, without evidence of pulmonary embolism with confidence to the proximal subsegmental divisions; nondiagnostic assessment
of the more distal subsegmental divisions.
Interstitial thickening and intraluminal bronchial opacity consistent with mucous plugging in the posterior right lung base. There is also mild parenchymal consolidation in the posterior right lower lobe, which could represent atelectasis or
pneumonia. Mild linear parenchymal stranding, likely scarring in the right middle lobe.
Assessment and plan
74-year-old history of esophageal cancer and atrial fibrillation, status post attempted cardioversion in the emergency department x 2 with maintenance of atrial fibrillation. Is hemodynamically stable at this time. Troponin was negative. ECG
shows no acute ischemic changes. I suspect is chest discomfort secondary to uncontrolled atrial fibrillation. His imaging is negative for a PE and is on anticoagulation. There were multiple findings in the lung parenchyma which include some
mucous plugging, possible atelectasis versus pneumonia and scarring. Patient had no clinical symptoms of pneumonia. He is afebrile has no acute changes in his white count and not hypoxic.
Uncontrolled afib
- admit to ivu
- continue ac with eliquis
- continue metoprolol
- start dilitazem at 5 and titrate for rates < 120. Stop if SBP < 90
- IV fluids for now
- echo, bnp, trend troponins
- cardiology consult
Pulmonary lesions - suspect atelectasis rather than pna
- check procalcitonin
- monitor oxygen rquirments
- prn nebs
- abx if febrile
DVT PPX - on apixaban
Code status - full code
[2024-08-11] MEDS: CARDIZEM 125 IV (00:22)
[2024-08-11] MEDS: NSS 1000 IV (01:44)
[2024-08-11 02:08] LABS: Troponin I < 0.012 ng/ml
[2024-08-11 04:47] LABS: Hematocrit 33.4 % (39.0-52.0); Hemoglobin 11.9 g/dL (13.0-18.0); Mean Corp Hgb Conc. 35.6 g/dL (33.0-37.0); Mean Corpuscular Hgb 32.2 pg (27.0-31.0); Mean Corpuscular Volume 90.5 fL (80.0-94.0); Mean Platelet Volume 11.1 fL (7.4-10.4); Platelet Count 91 10^3/uL (130-400); Red Blood Cell Count 3.69 10^6/uL (4.70-6.10); Red Cell Dist. Width 14.9 % (11.5-14.5); White Blood Cell Count 4.1 10^3/uL (4.8-10.8)
[2024-08-11 05:02] LABS: Blood Urea Nitrogen 9 mg/dl (9-20); Calcium 7.7 mg/dl (8.4-10.2); Carbon Dioxide 24 mmol/L (22-30); Chloride 107 mmol/L (98-107); Estimated Creatinine Clearance 110 ml/min; Glucose 113 mg/dl (70-99); HDL Cholesterol 55 mg/dl; LDL Cholesterol, Calculated 35 mg/dl; Potassium 4.5 mmol/L (3.5-5.1); Sodium 131 mmol/L (135-145); Total Cholesterol 102 mg/dl (50-199); Triglyceride 62 mg/dl (10-149); Very Low Density Lipoprotein 12 mg/dl (0-30); eGFR > 60.00
[2024-08-11 05:13] LABS: Troponin I < 0.012 ng/ml
--- NOTE | 2024-08-11 07:51 | CON.CAR ---
Addendum entered and electronically signed by Bryant Almeida MD 08/11/24 12:35:
I saw and examined the patient.
The Software Test Analyst's note was reviewed and I agree with the note.
Comment: Briefly, 74-year-old man past medical history of paroxysmal atrial fibrillation who presented with chest discomfort and was found to be in atrial fibrillation with rapid ventricular response. Direct-current cardioversion was attempted in
the ER but was unsuccessful and he was admitted for further management. At the time of my evaluation heart rates were controlled on diltiazem drip at a rate of 5.
Plan to discontinue diltiazem drip
Resume home metoprolol at a higher dose, 25 mg twice daily, as blood pressure tolerates
Add amiodarone for additional rate control
Continue Eliquis for cardioembolic prophylaxis
If he remains in atrial fibrillation would tentatively plan for direct-current cardioversion in 3 weeks after he has been reliably anticoagulated
Check echo
Pleural effusion noted on CT scan, will ask interventional radiology to evaluate for possible thoracentesis
Rest per Daria Abrams
Addendum entered and electronically signed by Daria Abrams PA-C 08/11/24 09:44:
correction to below: should read mod L pleural effusion. will attempt to have IRAD tap LEFT side.
Original Note:
Consultation
Consultation Request
Date/Time Consultation Performed: 08/11/24
Requesting Provider: Dr. Cummins
Performing Provider: Daria Abrams PA-C for Dr. Almeida
Reason for Consultation: afib, CP
Medical History
-
Chief Complaint: afib, CP
History of Present Illness:
Patient is a 74 yo M with PMH of esophageal cancer, adenocarcinoma and underwent esophagectomy and lymph node dissection in 2022 with chemo and radiation, then with recurrence by PET 02/2024 back on chemotherapy. His last dose was last Friday and
next dose is next Friday, which should be the last session (oncologist is Dr. Trey Fajardo [facility]). He has history of paroxysmal atrial fibrillation s/p CV in 2020, and most recently 11/2022. He has been maintained on eliquis without missed
doses. He reports he is typically asymptomatic with afib and reports he has not had afib for ~18 months. He was previously on amiodarone in 2022 post CV however this was stopped as he was not having recurrences, confirmed by OP monitor. He reports
yesterday he woke up from a nap around 1PM with central chest discomfort. He denies radiation of pain, lightheadedness, palpitations. He reports he always has nausea related to his chemotherapy, but nothing more than normal. He came to ER for
evaluation and was given tylenol and asa with relief of discomfort. Trops negative. He was found to be in afib with RVR. He was hypotensive and was given IVF without improvement. He was not given AV adan blocking agents given hypotension. He then
underwent attempted CV in ER x2 shocks @200J, unsuccessful. He was admitted. Cardiology consulted for evaluation.
PMH:
Paroxysmal atrial fibrillation and atrial tachycardia
Chronic OAC with eliquis
Esophageal cancer (adenocarcinoma) s/p esophagectomy and lymph node resection 2022, chemo and XRT, with recurrence 02/2024, currently on chemotherapy
CLL
HTN
HLD
Diet controlled diabetes
Remote history of melanoma
Past Medical History
Past Medical History: Other (in HPI)
Social History
Tobacco: Non-Smoker
Alcohol: Occasional
Personal:
Living: With Family
Employment: Retired
Family History
Family History: Reviewed & Not Pertinent
Allergies / Home Medications
Allergy/AdvReac Type Severity Reaction Status Date / Time
No Known Allergies Allergy Verified 12/31/23 00:27
�Medication �Instructions �Recorded �Confirmed �Type
apixaban 5 mg tablet (Eliquis) 5 mg PO BID blood thinner 10/11/20 08/10/24 History
atorvastatin 40 mg tablet 40 mg PO QPM High Cholesterol 10/11/20 08/10/24 History
albuterol 90 mcg/actuation aerosol 2 mcg inhalation Q6 12/31/23 08/10/24 History
inhaler
ascorbic acid (vitamin C) 500 mg 500 mg PO DAILY 12/31/23 08/10/24 History
tablet (Vitamin C)
metoprolol succinate 25 mg 12.5 mg PO BID 12/31/23 08/10/24 History
tablet,extended release 24 hr
ondansetron HCl 8 mg tablet 8 mg PO Q8H PRN nausea 12/31/23 08/10/24 History
dexamethasone 8 mg PO BID 08/10/24 08/10/24 History
docusate sodium 100 mg capsule 100 mg PO DAILY 08/10/24 08/10/24 History
(Colace)
prochlorperazine maleate 10 mg 10 mg PO Q6H PRN nausea/vomiting 08/10/24 08/10/24 History
tablet (Compazine)
Review of Systems
-
History Source: Patient
All other systems: Negative unless noted
Physical Exam
Vital Signs
Temp Pulse Resp BP Pulse Ox
98.5 F 76 16 114/71 96
08/11/24 06:52 08/11/24 04:08 08/11/24 06:52 08/11/24 04:08 08/11/24 06:52
Lab Results
08/11/24 04:18
08/11/24 04:18
Troponin I < 0.012 ng/ml 08/11/24 04:18
Physical Exam
General: No Apparent Distress and Comfortable
HEENT: Normocephalic, Anicteric and Moist Mucous Membranes
Respiratory: Clear and Non Labored Respirations
Cardiac: S1/S2 and Irregular Rhythm
GI: Soft, Non Tender, Non Distended and Normal Bowel Sounds
Musculoskeletal: No Clubbing, No Cyanosis and Edema (trace of B/L LE)
Skin: Warm and Dry
Neuro: AO x 3
Impression / Plan
-
Primary Senior Director Of [employer] Solutions: Dr. Field
Assessment:
Presentation with CP
Serially negative troponins
Atrial fibrillation with RVR, s/p unsuccessful CV in ER 08/10/24
Mod R pleural effusion
Elevated LFTs
Paroxysmal atrial fibrillation and atrial tachycardia
Chronic OAC with eliquis
Esophageal cancer (adenocarcinoma) s/p esophagectomy and lymph node resection 2022, chemo and XRT, with recurrence 02/2024, currently on chemotherapy
CLL
HTN
HLD
Diet controlled diabetes
Remote history of melanoma
Echo 10/20/2023: EF 51%, MAC, mild MR, mild TR, PAP 26 mmHg
Plan:
- Patient presented with chest discomfort and on arrival to the ER was found to be in atrial fibrillation with rapid ventricular response. Underwent unsuccessful cardioversion in ER.
- Was started on IV Cardizem and admitted
- He had previously been on amiodarone for paroxysmal atrial fibrillation, however had then not had known recurrence since last cardioversion 11/2022. Discussed resuming amiodarone with patient, and he is agreeable. Will start 400 mg 3 times daily.
Repeat EKG in a.m., monitoring QTc
- Will increase outpatient Lopressor dose to 25 mg twice daily. He is incorrectly listed as being on Toprol 12.5 mg twice daily as outpatient
- Continue Eliquis 5 mg twice daily
- check TSH
- Serial troponins negative. Patient reports chest pain was relieved with aspirin and Tylenol.
- Last echo from 2023 as above, repeat
- Underwent chest CT negative for PE, however did show moderate right-sided pleural effusion as well as some mucous plugging
- proBNP ordered by me. not on diuretic as OP
- [facility] evaluation to determine candidacy for right thoracentesis
- could consider for repeat attempt at CV as OP if remains in afib
Data Reviewed
-
EKG: Tracing Personally Visualized and interpreted
CT Scan: Report Reviewed by me
Medical Tests (Nuc Med, Echo etc): Report Reviewed by me
Labs: Labs Reviewed by me
Old Records: Reviewed
--- NOTE | 2024-08-11 08:23 | W.PN.HOSP.TC ---
Today's Communication/Plan
-
Cardiology consult
Assessment / Plan
Assessment / Plan
Gen-AAOx3, NAD
HEENT-NC, AT, anicteric, clear oral mm
Neck-supple
CV-irregular, no M, +S1/S2
Lungs-clear B/L
Abd-soft, NT, ND
Ext-no edema
Musculoskeletal-no cyanosis, clubbing
Skin-warm and dry
Neuro-grossly non-focal
Psych-calm, cooperative
Rapid paroxysmal atrial fibrillation -presentation with chest pain. Underwent cardioversion x 2 in the emergency room on admission. This only slowed down the rate but did not convert him. Symptoms resolved. Heart rate now controlled, remains in
atrial fibrillation.
Continue Eliquis, metoprolol, currently on IV Cardizem infusion 5 mg/h.
Troponins negative.
Cardiology consulted.
Patient previously on amiodarone but discontinued a year and a half ago due to concerns over side effects.
Pancytopenia -likely due to chemotherapy. Monitor counts.
Chronic hyponatremia -presumably SIADH, possibly from malignancy. Sodium 131. Mild fluid restriction.
Hyperkalemia -POA. Resolved.
Elevated transaminases -differential diagnosis includes ischemic hepatitis from hypotension, adverse drug reaction, etc. Doubt infectious hepatitis. Trend liver enzymes. Hold atorvastatin.
Stage III esophageal cancer -treated with esophagectomy, chemotherapy, immunotherapy. Goes to [facility].
Essential hypertension -hypotensive on arrival, resolved.
Hyperlipidemia -hold atorvastatin for elevated transaminases.
History of CLL
Full code
Anticipated Discharge: Within 24 hours
Subjective/Interval History
-
Date of Service: August 11, 2024
Patient seen and examined. Feeling much better compared to yesterday. No complaints.
Objective Data
-
Labs:
Laboratory Results
08/11/24
04:18
WBC 4.1 L
Hgb 11.9 L
Hct 33.4 L
Plt Count 91 L D
Sodium 131 L
Potassium 4.5
Chloride 107
Carbon Dioxide 24
BUN 9
Creatinine 0.5 L
Glucose 113 H
Calcium 7.7 L
Vital Signs:
Vital Signs
Temp Pulse Resp BP Pulse Ox
98.5 F 88 16 105/75 96
08/11/24 06:52 08/11/24 08:00 08/11/24 06:52 08/11/24 08:00 08/11/24 06:52
I&O
08/10/24 08/11/24 08/12/24
06:59 06:59 06:59
Intake Total 600 / 600
Balance 600 / 600
Review of Systems
-
History Source: Patient
All other systems: Reviewed and negative
[2024-08-11 08:29] LABS: NT-proBNP 1840 pg/ml
[2024-08-11 08:34] LABS: Glycohemoglobin (HgbA1c) 6.1 % (4.0-5.6)
--- NOTE | 2024-08-11 08:48 | CM ---
Reviewed chart. Met with Mr. Che to review discharge plans. He states prior to admission he resides with his spouse in a spilt level home without any steps to enter. He states he has five steps to each level. His bedroom/full bathroom are on
the second floor. He states prior to admission he was independent with ambulation and adls. He states he does not have any DME in the home. He states he has a prescription plan and uses [facility]. Medical work-up in progress. The discharge
plan is to return home with his spouse when medically stable.
[2024-08-11] MEDS: ELIQUIS 5 MG PO ×2 (09:08→20:22)
[2024-08-11] MEDS: VITAMIN C 500 MG PO (09:08)
[2024-08-11] MEDS: COLACE 100 MG PO (09:08)
[2024-08-11] MEDS: LOPRESSOR 25 MG PO ×2 (09:14→20:22)
[2024-08-11] MEDS: PACERONE 400 MG PO ×3 (09:20→22:31)
[2024-08-11] MEDS: FLUSH (NSS) 1 FLUSH IV (09:21)
[2024-08-11 12:47] LABS: Body Fluid LDH 100 U/L; Body Fluid Protein < 2.0 g/dl
--- NOTE | 2024-08-11 13:19 | PTCARENOTE ---
Received patient this morning resting in bed, cardizem gtt infusing at 5mg/hr. Patient seen by cardiology and was given PO amio as ordered. Caridzem gtt discontinued at 1030 and the patient was sent to IR for L thoracentesis. Band aid left posterior
back is dry and intact. Patient remains in AF with rate in the 80's. Patient scheduled for echo, call ennis in reach, family at the bedside.
[2024-08-11] MEDS: NSS IV (14:20)
[2024-08-11 15:48] LABS: LDH 158 U/L (120-246); Total Protein 3.5 g/dl (6.3-8.2)
[2024-08-12] VITALS (7 sets, daily range): BP systolic 90–124; BP diastolic 63–91; BMI 22.9
[2024-08-12 04:50] LABS: % Basophils 0.3 % (0-2); % Eosinophils 2.3 % (0-6); % Lymphocytes 29.5 % (20.5-51.1); % Monocytes 19.5 % (1.7-9.3); % Neutrophils 47.4 % (42.2-75.2); Absolute Eosinophils 0.1 10^3/uL (0-0.7); Absolute Lymphocytes 0.9 10^3/uL (1.2-3.4); Absolute Monocytes 0.6 10^3/uL (0.1-0.6); Absolute Neutrophils 1.4 10^3/uL (1.4-6.5); Mean Corp Hgb Conc. 34.3 g/dL (33.0-37.0); Mean Corpuscular Hgb 31.7 pg (27.0-31.0); Mean Corpuscular Volume 92.3 fL (80.0-94.0); Mean Platelet Volume 11.1 fL (7.4-10.4); Nucleated Red Blood Cells % 0 % (-); Platelet Count 101 10^3/uL (130-400); Red Blood Cell Count 3.79 10^6/uL (4.70-6.10); Red Cell Dist. Width 15.7 % (11.5-14.5)
[2024-08-12 05:14] LABS: ALT (SGPT) 77 U/L (0-50); AST (SGOT) 33 U/L (17-59); Alkaline Phosphatase 75 U/L (38-126); Blood Urea Nitrogen 8 mg/dl (9-20); Calcium 7.5 mg/dl (8.4-10.2); Carbon Dioxide 23 mmol/L (22-30); Chloride 106 mmol/L (98-107); Estimated Creatinine Clearance 109 ml/min; Glucose 91 mg/dl (70-99); Potassium 3.8 mmol/L (3.5-5.1); Sodium 133 mmol/L (135-145); Total Bilirubin 0.4 mg/dl (0.2-1.3); Total Protein 3.8 g/dl (6.3-8.2); eGFR > 60.00
--- NOTE | 2024-08-12 08:28 | W.PN.CARDCBS ---
Addendum entered and electronically signed by Nayeli Leiva DO 08/12/24 22:19:
I saw and examined the patient.
The Soap Press Feeder's note was reviewed and I agree with the note.
Comment: Patient was seen and examined. Overall feels better with no further chest discomfort. No shortness of breath at rest.
He is awake alert and oriented x 3 with family at bedside. Mucous membranes are moist. Lungs decreased at the bases with fine crackles right base and decreased breath sounds on the left. No wheezes. Irregularly irregular, positive S1-S2. No
murmurs. Trace pedal edema. Grossly nonfocal
Plan:
Paroxysmal atrial fibrillation currently in atrial fibrillation with failed cardioversion in the emergency department on admission
- Now on amiodarone
- Continue Eliquis
- TSH within normal limits.
- Discussed options with patient and family; n.p.o. after midnight with plan for repeat cardioversion attempt on amiodarone tomorrow 08/13/2024
Heart failure with preserved ejection fraction
- proBNP 1840
- Status post thoracentesis on the left 08/11/2024 with 550 cc removed; cytology pending
-2D echocardiogram with mildly reduced LV systolic function estimated 45-50% and mildly reduced RV systolic function with mild mitral regurgitation mild�moderate tricuspid regurgitation. Aortic valve trileaflet, minimally sclerotic without stenosis
or regurgitation. Estimated pulmonary artery pressure 35 mmHg. No pericardial effusion
-Serially undetectable troponins with no further chest pain
- IV Lasix today
- CTA chest negative for PE
- Plan for second attempt at rhythm control strategy. Could consider eventual EP consultation and referral for ablation
Esophageal cancer status post esophagectomy and lymph node resection in 2022 followed by chemo and XRT with recurrence in February 2024 currently on chemotherapy/history of CLL
- Status post thoracentesis with cytology pending
- Pancytopenia likely due to chemotherapy: Hemoglobin stable at 12, platelets reasonable without evidence of bleeding at 101.
- Internal medicine with plans to reach out to patient's outpatient oncologist at [facility]
Chronic hyponatremia, presumed SIADH possibly from malignancy
- Monitor with start of IV Lasix
Original Note:
Today's Communication / Plan
-
continue amiodarone loading
transition lopressor to toprol given EF 45%, suspected tachy mediated
if remains rapid, consider repeat CV in AM
IV lasix 20mg x1
consider onc eval given exudative effusion, cytology pending
Impression / Plan
-
Primary Drain Technician: Dr. Field
Assessment:
Presentation with CP
Serially negative troponins
Atrial fibrillation with RVR, s/p unsuccessful CV in ER 08/10/24
Mod R pleural effusion
Elevated LFTs
Paroxysmal atrial fibrillation and atrial tachycardia
Chronic OAC with eliquis
Esophageal cancer (adenocarcinoma) s/p esophagectomy and lymph node resection 2022, chemo and XRT, with recurrence 02/2024, currently on chemotherapy
CLL
HTN
HLD
Diet controlled diabetes
Remote history of melanoma
Echo 10/20/2023: EF 51%, MAC, mild MR, mild TR, PAP 26 mmHg
Echo 08/11/24: EF 45 to 50%, global hypokinesis, mildly reduced RV function, mild MR, mild to moderate TR, PAP 35 mmHg
Plan:
- Patient presented to the ER for chest discomfort and was found to be in A-fib with RVR. Underwent unsuccessful cardioversion in ER
- He remains in A-fib on review of telemetry overnight
- He was previously on Amio, however subsequently stopped as was without recurrence. Amiodarone 400 mg 3 times daily was resumed 08/11. His Lopressor dose was increased to 25 mg twice daily as well. Currently heart rates are rapid in A-fib, but
has not yet received his a.m. medications
- If remains rapid in A-fib today, would plan for repeat cardioversion in a.m. however ideally in setting of recent unsuccessful cardioversion in ER 08/10, would load with amiodarone for several weeks as outpatient then bring patient back for
cardioversion if remains in A-fib
- Continue Eliquis 5 mg twice daily
- Check TSH
- Serial troponins negative. Patient reports chest pain was relieved with aspirin and Tylenol.
- Echo from 08/11 with EF 45 to 50%. Will transition Lopressor to Toprol 25mg BID and uptitrate as able
- Underwent chest CT negative for PE, however did show moderate right-sided pleural effusion as well as some mucous plugging. Status post left thoracentesis on 08/11. By lights criteria appears to be exudative, cytology pending. He has esophageal
cancer.
- proBNP 1839. Not on diuretic therapy as an outpatient. Will give dose of IV Lasix 20 mg today and assess response
Progress Note - Drain Technician
Subjective
Date of Service: August 12, 2024
no issues overnight. denies palpitations
Objective
Labs:
08/12/24 04:12
08/12/24 04:12
Labs
Hgb 12.0 g/dL (13.0-18.0) L 08/12/24 04:12
Hct 35.0 % (39.0-52.0) L 08/12/24 04:12
Plt Count 101 10^3/uL (130-400) L 08/12/24 04:12
PT 14.7 Sec (11.4-14.6) H 08/10/24 16:50
INR 1.12 08/10/24 16:50
APTT 26.1 Sec (23.4-35.0) 08/10/24 16:50
Sodium 133 mmol/L (135-145) L 08/12/24 04:12
Potassium 3.8 mmol/L (3.5-5.1) 08/12/24 04:12
BUN 8 mg/dl (9-20) L 08/12/24 04:12
Creatinine 0.5 mg/dL (0.7-1.3) L 08/12/24 04:12
Glucose 91 mg/dl (70-99) 08/12/24 04:12
Troponins
08/10/24 08/10/24 08/11/24
16:50 20:21 01:21
Troponin I < 0.012 < 0.012 < 0.012
08/11/24 08/11/24
04:18 06:57
Troponin I < 0.012 Cancelled
Vital Signs and I&O:
Vital Signs
Temp Pulse Resp BP Pulse Ox
97.9 F 89 20 113/91 97
08/12/24 07:47 08/12/24 04:05 08/12/24 07:47 08/12/24 04:05 08/12/24 07:47
Vital Signs
Temp Pulse Resp BP Pulse Ox
97.9 F 89 20 113/91 97
08/12/24 07:47 08/12/24 04:05 08/12/24 07:47 08/12/24 04:05 08/12/24 07:47
Intake & Output
08/10/24 08/11/24 08/12/24 08/13/24
07:59 07:59 07:59 07:59
Intake Total 600 / 600 1560 / 1560
Balance 600 / 600 1560 / 1560
Physical Exam
Physical Exam
GEN: No distress, awake, alert, oriented x3
HEENT: supple, anicteric, mmm, eomi
LUNGS: Crackles B/L bases, no wheezes
CV: Irreg irreg, S1/S2, no murmur
ABD: soft, BS+, NT/ND
EXT: No cyanosis, clubbing. trace edema of B/L LE
NEURO: Gross non-focal
SKIN: Warm, pink, dry. No rash
[2024-08-12] MEDS: PACERONE 400 MG PO ×3 (08:36→22:37)
[2024-08-12] MEDS: VITAMIN C 500 MG PO (08:36)
[2024-08-12] MEDS: ELIQUIS 5 MG PO ×2 (08:36→20:27)
[2024-08-12] MEDS: LOPRESSOR 25 MG PO (08:36)
[2024-08-12] MEDS: COLACE 100 MG PO (08:37)
--- NOTE | 2024-08-12 10:19 | CM ---
Reviewed chart. Met with Mr. Che to review discharge plans. He states he is feeling well. Prior to admission he resides with his spouse in a spilt level home without any steps to enter. He has five steps to get to hid bedroom/full bathroom.
Prior to admission he was independent with ambulation and adls. He méndez not have any DME in the home. He has a prescription plan and uses [facility]. Medical work-up in progress. The discharge plan is to return home with his spouse when
medically stable.
[2024-08-12] MEDS: TOPROL XL 25 MG PO ×2 (11:45→20:28)
[2024-08-12] MEDS: LASIX 20 MG IV (11:45)
--- NOTE | 2024-08-12 13:00 | W.PN.HOSP.TC ---
Today's Communication/Plan
-
Continue current care
Assessment / Plan
Assessment / Plan
Gen-AAOx3, NAD
HEENT-NC, AT, anicteric, clear oral mm
Neck-supple
CV-irregular, no M, +S1/S2
Lungs-clear B/L
Abd-soft, NT, ND
Ext-no edema
Musculoskeletal-no cyanosis, clubbing
Skin-warm and dry
Neuro-grossly non-focal
Psych-calm, cooperative
Rapid paroxysmal atrial fibrillation -presentation with chest pain. Underwent cardioversion x 2 in the emergency room on admission. This only slowed down the rate but did not convert him. Symptoms resolved. Heart rate now controlled, remains in
atrial fibrillation.
Continue Eliquis, metoprolol, off Cardizem infusion.
Troponins negative.
Amiodarone loading per cardio.
Cardiology contemplating repeat cardioversion in the morning if needed.
Echocardiogram shows LVEF 45 to 50%, global hypokinesis, diastolic function indeterminate due to atrial fibrillation. Mildly reduced RV systolic function. Mild MR. Mild to moderate TR.
Left pleural effusion -suspect transudative etiology, as LDH was only 100, protein less than 2. However, fluid cytology pending.
IR performed thoracentesis August 11, 550 cc clear yellow fluid removed. No signs or symptoms of infection.
Pancytopenia -likely due to chemotherapy. Monitor counts.
Chronic hyponatremia -presumably SIADH, possibly from malignancy. Sodium 133. Mild fluid restriction.
Hyperkalemia -POA. Resolved.
Elevated transaminases -differential diagnosis includes ischemic hepatitis from hypotension, adverse drug reaction, etc. Doubt infectious hepatitis. Trend liver enzymes. Hold atorvastatin. LFTs improved.
Stage III esophageal cancer -treated with esophagectomy, chemotherapy, immunotherapy. Goes to [facility]. Dr. Trey Fajardo, . I left a message for a call back.
Essential hypertension -hypotensive on arrival, resolved.
Hyperlipidemia -hold atorvastatin for elevated transaminases.
History of CLL
Full code
Daughter updated at the bedside.
Anticipated Discharge: 24 - 48 hours
Subjective/Interval History
-
Date of Service: August 12, 2024
Patient seen and examined. No complaints.
Objective Data
-
Labs:
Laboratory Results
08/12/24
04:12
WBC 3.0 L
Hgb 12.0 L
Hct 35.0 L
Plt Count 101 L
Sodium 133 L
Potassium 3.8
Chloride 106
Carbon Dioxide 23
BUN 8 L
Creatinine 0.5 L
Glucose 91
Calcium 7.5 L
Total Bilirubin 0.4
AST 33
ALT 77 H
Alkaline Phosphatase 75
Vital Signs:
Vital Signs
Temp Pulse Resp BP Pulse Ox
98.3 F 132 20 110/84 97
08/12/24 11:05 08/12/24 08:00 08/12/24 11:05 08/12/24 07:47 08/12/24 11:05
I&O
08/11/24 08/12/24 08/13/24
06:59 06:59 06:59
Intake Total 600 / 600 1560 / 1560
Balance 600 / 600 1560 / 1560
Review of Systems
-
History Source: Patient
All other systems: Reviewed and negative
[2024-08-12] MEDS: ZOFRAN 4 MG IV (19:08)
[2024-08-13 04:37] VITALS: BP 109/85
[2024-08-13 04:46] VITALS: BMI 22.6
--- NOTE | 2024-08-13 05:26 | PTCARENOTE ---
Pt AFib on monitor, denies pain or SOB. NPO for CV. Independent in the room, call ennis in reach
[2024-08-13 05:36] LABS: % Basophils 0.7 % (0-2); % Eosinophils 3.1 % (0-6); % Immature Granulocytes 0.3 % (0-0.5); % Monocytes 15.9 % (1.7-9.3); Absolute Eosinophils 0.1 10^3/uL (0-0.7); Absolute Lymphocytes 0.9 10^3/uL (1.2-3.4); Absolute Monocytes 0.5 10^3/uL (0.1-0.6); Absolute Neutrophils 1.5 10^3/uL (1.4-6.5); Hemoglobin 12.3 g/dL (13.0-18.0); Mean Corp Hgb Conc. 35.1 g/dL (33.0-37.0); Mean Corpuscular Hgb 31.4 pg (27.0-31.0); Mean Corpuscular Volume 89.3 fL (80.0-94.0); Mean Platelet Volume 11.1 fL (7.4-10.4); Nucleated Red Blood Cells % 0 % (-); Platelet Count 111 10^3/uL (130-400); Red Blood Cell Count 3.92 10^6/uL (4.70-6.10); Red Cell Dist. Width 15.5 % (11.5-14.5); White Blood Cell Count 2.9 10^3/uL (4.8-10.8)
[2024-08-13 05:59] LABS: ALT (SGPT) 68 U/L (0-50); AST (SGOT) 35 U/L (17-59); Albumin 2.1 g/dl (3.5-5.0); Alkaline Phosphatase 79 U/L (38-126); Blood Urea Nitrogen 8 mg/dl (9-20); Calcium 7.5 mg/dl (8.4-10.2); Carbon Dioxide 23 mmol/L (22-30); Chloride 107 mmol/L (98-107); Estimated Creatinine Clearance 107 ml/min; Glucose 85 mg/dl (70-99); Potassium 3.7 mmol/L (3.5-5.1); Sodium 134 mmol/L (135-145); Total Bilirubin 0.4 mg/dl (0.2-1.3); Total Protein 3.9 g/dl (6.3-8.2); eGFR > 60.00
[2024-08-13 08:07] VITALS: BP 110/74
[2024-08-13] MEDS: PACERONE 400 MG PO (08:12)
[2024-08-13] MEDS: TOPROL XL 25 MG PO (08:13)
[2024-08-13] MEDS: VITAMIN C 500 MG PO (08:13)
[2024-08-13] MEDS: ELIQUIS 5 MG PO (08:13)
[2024-08-13] MEDS: COLACE 100 MG PO (08:13)
--- NOTE | 2024-08-13 09:25 | W.PN.CARDCBS ---
Addendum entered and electronically signed by Duke Javed MD 08/13/24 11:58:
I saw and examined the patient.
The Poultry Husbandry Worker's note was reviewed and I agree with the note.
Comment:
GEN: No distress, awake, Ox3
HEENT: supple, anicteric, mmm
LUNGS: CTA, no wheezes/rales
CV: Reg, with ectopy, S1/S2, / syst LSB, no gallop
ABD: soft, BS+, NT/ND
EXT: No edema
NEURO: Gross non-focal
SKIN: No rash
PLan:
Back in sinus s/p CV. Cont Amio 200mg po bid x 30 days, then 200mg daily
cont Toprol/Eliquis
Would D/C on lasix 20mg 3x/week
OK for D/C from cards standpoint
Original Note:
Today's Communication / Plan
-
CV today
amiodarone 200mg BID for 30 days then decrease to 200mg daily
toprol 25mg BID
eliquis 5mg BID
consider for low dose lasix upon DC
for possible DC to home later today
will arrange OP cardiac follow up
Impression / Plan
-
Primary Inspector Scales: Dr. Field
Assessment:
Presentation with CP
Serially negative troponins
Atrial fibrillation with RVR, s/p unsuccessful CV in ER 08/10/24
Mod L pleural effusion s/p thoracentesis 08/11/24, exudative
Elevated LFTs
Paroxysmal atrial fibrillation and atrial tachycardia
Chronic OAC with eliquis
Esophageal cancer (adenocarcinoma) s/p esophagectomy and lymph node resection 2022, chemo and XRT, with recurrence 02/2024, currently on chemotherapy
CLL
HTN
HLD
Diet controlled diabetes
Remote history of melanoma
Echo 10/20/2023: EF 51%, MAC, mild MR, mild TR, PAP 26 mmHg
Echo 08/11/24: EF 45 to 50%, global hypokinesis, mildly reduced RV function, mild MR, mild to moderate TR, PAP 35 mmHg
Plan:
- Patient presented to the ER for chest discomfort and was found to be in A-fib with RVR. Underwent unsuccessful cardioversion in ER 08/10
- remains in afib on review of tele overnight
- for CV today.
- continue eliquis 5mg BID
- continue amiodarone, currently on 400mg TID. will plan to reduce to 200mg BID for 30 days upon DC then decrease to 200mg daily
- continue toprol 25mg BID
- Serial troponins negative. Patient reports chest pain on arrival was relieved with aspirin and Tylenol.
- Echo from 08/11 with EF 45 to 50%. Will transition Lopressor to Toprol 25mg BID and uptitrate as able
- Underwent chest CT negative for PE, however did show moderate L-sided pleural effusion as well as some mucous plugging. Status post left thoracentesis on 08/11. By lights criteria appears to be exudative, cytology pending. He has esophageal
cancer, follow up with his oncologist at [facility]
- proBNP 1839. Responded well to 20mg IV lasix on 08/12. would consider low dose diuretic upon DC - perhaps MWF vs PRN for weight gain/swelling. Not on diuretic therapy as an outpatient.
- will arrange OP cardiac follow up
- for possible DC to home today post CV
- d/w hospitalist via TT
Progress Note - Inspector Scales
Subjective
Date of Service: August 13, 2024
no issues overnight. NPO for CV today
Objective
Labs:
08/13/24 04:57
08/13/24 04:57
Labs
Hgb 12.3 g/dL (13.0-18.0) L 08/13/24 04:57
Hct 35.0 % (39.0-52.0) L 08/13/24 04:57
Plt Count 111 10^3/uL (130-400) L 08/13/24 04:57
PT 14.7 Sec (11.4-14.6) H 08/10/24 16:50
INR 1.12 08/10/24 16:50
APTT 26.1 Sec (23.4-35.0) 08/10/24 16:50
Sodium 134 mmol/L (135-145) L 08/13/24 04:57
Potassium 3.7 mmol/L (3.5-5.1) 08/13/24 04:57
BUN 8 mg/dl (9-20) L 08/13/24 04:57
Creatinine 0.5 mg/dL (0.7-1.3) L 08/13/24 04:57
Glucose 85 mg/dl (70-99) 08/13/24 04:57
Troponins
08/10/24 08/10/24 08/11/24
16:50 20:21 01:21
Troponin I < 0.012 < 0.012 < 0.012
08/11/24 08/11/24
04:18 06:57
Troponin I < 0.012 Cancelled
Vital Signs and I&O:
Vital Signs
Temp Pulse Resp BP Pulse Ox
98.5 F 84 18 117/67 98
08/13/24 08:39 08/13/24 04:00 08/13/24 08:39 08/12/24 22:37 08/13/24 04:36
Vital Signs
Temp Pulse Resp BP Pulse Ox
98.5 F 84 18 117/67 98
08/13/24 08:39 08/13/24 04:00 08/13/24 08:39 08/12/24 22:37 08/13/24 04:36
Intake & Output
08/11/24 08/12/24 08/13/24 08/14/24
07:59 07:59 07:59 07:59
Intake Total 600 / 600 1560 / 1560
Balance 600 / 600 1560 / 1560
Physical Exam
Physical Exam
GEN: No distress, awake, alert, oriented x3
HEENT: supple, anicteric, mmm, eomi
LUNGS: Decreased BS RLB, no wheezes
CV: Irreg, S1/S2, no murmur
ABD: soft, BS+, NT/ND
EXT: No cyanosis, clubbing, edema
NEURO: Gross non-focal
SKIN: Warm, pink, dry. No rash
--- NOTE | 2024-08-13 09:59 | W.PN.HOSP.TC ---
Addendum entered and electronically signed by Emmett Lopez DO 08/13/24 12:14:
Successful cardioversion today.
Ok to discharge today, discussed with Cardiology.
Outpatient follow up.
Original Note:
Today's Communication/Plan
-
Await cardioversion
Assessment / Plan
Assessment / Plan
Gen-AAOx3, NAD
HEENT-NC, AT, anicteric, clear oral mm
Neck-supple
CV-irregular, no M, +S1/S2
Lungs-clear B/L
Abd-soft, NT, ND
Ext-no edema
Musculoskeletal-no cyanosis, clubbing
Skin-warm and dry
Neuro-grossly non-focal
Psych-calm, cooperative
Rapid paroxysmal atrial fibrillation -presentation with chest pain. Underwent cardioversion x 2 in the emergency room on admission. This only slowed down the rate but did not convert him. Symptoms resolved. Heart rate now controlled, remains in
atrial fibrillation.
Continue Eliquis, metoprolol, off Cardizem infusion.
Troponins negative.
Amiodarone loading per cardio.
Cardiology plans on repeat cardioversion today.
Echocardiogram shows LVEF 45 to 50%, global hypokinesis, diastolic function indeterminate due to atrial fibrillation. Mildly reduced RV systolic function. Mild MR. Mild to moderate TR.
Left pleural effusion -suspect transudative etiology, as LDH was only 100, protein less than 2. However, fluid cytology pending.
IR performed thoracentesis August 11, 550 cc clear yellow fluid removed. No signs or symptoms of infection.
Pancytopenia -likely due to chemotherapy. Hemoglobin and platelet count improving, WBC count 2.9.
Chronic hyponatremia -presumably SIADH, possibly from malignancy. Sodium 134. Mild fluid restriction.
Hyperkalemia -POA. Resolved.
Elevated transaminases -differential diagnosis includes ischemic hepatitis from hypotension, adverse drug reaction, etc. Doubt infectious hepatitis. Trend liver enzymes. Hold atorvastatin. LFTs improved.
Stage III esophageal cancer -treated with esophagectomy, chemotherapy, immunotherapy. Goes to [facility]. Dr. Trey Fajardo, . I left a message for a call back.
Essential hypertension -hypotensive on arrival, resolved.
Hyperlipidemia -hold atorvastatin for elevated transaminases.
History of CLL
Full code
Anticipated Discharge: Today
Subjective/Interval History
-
Date of Service: August 13, 2024
Patient seen and examined. No complaints.
Objective Data
-
Labs:
Laboratory Results
08/13/24
04:57
WBC 2.9 L
Hgb 12.3 L
Hct 35.0 L
Plt Count 111 L
Sodium 134 L
Potassium 3.7
Chloride 107
Carbon Dioxide 23
BUN 8 L
Creatinine 0.5 L
Glucose 85
Calcium 7.5 L
Total Bilirubin 0.4
AST 35
ALT 68 H
Alkaline Phosphatase 79
Vital Signs:
Vital Signs
Temp Pulse Resp BP Pulse Ox
98.5 F 84 18 117/67 98
08/13/24 08:39 08/13/24 04:00 08/13/24 08:39 08/12/24 22:37 08/13/24 04:36
I&O
08/12/24 08/13/24 08/14/24
06:59 06:59 06:59
Intake Total 1560 / 1560
Balance 1560 / 1560
Review of Systems
-
History Source: Patient
All other systems: Reviewed and negative
--- NOTE | 2024-08-13 11:53 | ITS.CL.CARDI ---
[employer] - Cardioversion
Cardioversion
Procedure Report:
Date of Procedure: 08/13/24
Procedure: Cardioversion
Indication: Symptomatic atrial fibrillation
Performing Physician: Lawrence Javed MD
Technique: The patient was brought to the holding area. Signed informed consent was obtained. A time out was called and performed. The patient was anesthetized by the anesthesia service. Anticoagulation status was reviewed and appropriate. R2 pads
were placed anteriorly and posteriorly. A 200 J synchronized biphasic shock restored normal sinus rhythm with sinus bradycardia. There were no complications.
Conclusion: Uncomplicated cardioversion from atrial fibrillation to sinus rhythm.
Recommendation: Routine post cardioversion care. Continue watermaster anticoagulation.
[2024-08-13 12:19] VITALS: BP 91/64
--- NOTE | 2024-08-13 12:25 | W.DS.TRANS ---
DC Summary - Assembling Motor Builder
-
Discharge Instructions:
Sleep Apnea Risk Low
Discharge Diagnosis/Procedures Rapid atrial fibrillation, left pleural effusion
Diet Regular
Activity As tolerated
Driving Restrictions No driving for 24 hours
Bathing Restrictions None
Instructions:
Stand-Alone Forms:
Changes to Home Medications: Yes
Discharge Medications:
DC Medications w/original date entered in [employer]
apixaban 5 mg tablet (Eliquis) 5 mg PO BID blood thinner 10/11/20
atorvastatin 40 mg tablet 40 mg PO QPM High Cholesterol 10/11/20
albuterol 90 mcg/actuation aerosol inhaler 2 mcg inhalation Q6 Lung/Breathing Issues 12/31/23
ascorbic acid (vitamin C) 500 mg tablet (Vitamin C) 500 mg PO DAILY Supplement 12/31/23
ondansetron HCl 8 mg tablet 8 mg PO Q8H PRN nausea 12/31/23
dexamethasone 8 mg PO BID 08/10/24
docusate sodium 100 mg capsule (Colace) 100 mg PO DAILY Constipation 08/10/24
prochlorperazine maleate 10 mg tablet (Compazine) 10 mg PO Q6H PRN nausea/vomiting 08/10/24
amiodarone 200 mg tablet 200 mg PO BID #60 tabs 08/13/24
furosemide 20 mg tablet 20 mg PO MOWEFR #14 tabs 08/13/24
metoprolol succinate 25 mg tablet,extended release 24 hr 25 mg PO BID #60 tabs 08/13/24
Home Medication Changes
Metoprolol dose increased to 25 mg twice daily.
Pending Results: No
--- NOTE | 2024-08-13 13:08 | PTCARENOTE ---
Pt returned from CV 1220, A,A+Ox3, offers no complaints. VSS. He is SB-SR with PAC's on supervisor tank house.
--- NOTE | 2024-08-13 13:13 | CM ---
Reviewed chart. Met with Mr. Che to review discharge plans. He states he is feeling well and maybe able to go home soon. Prior to admission he resides with his spouse in a spilt level without any steps to enter the home. He has five steps to
get to each level. His bedroom/full bathroom are on the second floor. Prior to admission he was independent with ambulation and adlls. He does not have any DME in the home. He has a prescription plan and uses [facility] pharmacy. Medical work-up in
progress. The discharge plan is to return home with his spouse when medically stable.
--- NOTE | 2024-08-13 13:18 | PTCARENOTE ---
Pt's BP 91/64. Pt asymptomatic.
--- NOTE | 2024-08-13 14:16 | PTCARENOTE ---
D/C instructions reviewed with Pt and Pt's , they expressed understanding.
== END 2024-08-13 14:21 | disposition home or self-care (01) | DRG 308 ==
LOC: IVU 00:53
PROVIDERS: Emergency Medicine; Internal Medicine Cardiovascular Disease; Nurse Practitioner; Nurse Practitioner Family; Physician Assistant; Radiology Vascular & Interventional Radiology; ADMITTING PHYSICIAN Internal Medicine; ATTENDING PHYSICIAN Hospitalist; EMERGENCY PHYSICIAN Student in an Organized Health Care Education/Training Program; FAMILY PHYSICIAN Family Medicine; OTHER PHYSICIAN Internal Medicine Cardiovascular Disease
PROC: 0W9B3ZZ Drainage of Left Pleural Cavity, Percutaneous Approach (ICD-10-PCS; 2024-08-11)
PROC: 5A2204Z Restoration of Cardiac Rhythm, Single (ICD-10-PCS; 2024-08-13)
DX: I48.0 Paroxysmal atrial fibrillation (principal); D61.810 Antineoplastic chemotherapy induced pancytopenia; C15.9 Malignant neoplasm of esophagus, unspecified; D61.818 Other pancytopenia; J90 Pleural effusion, not elsewhere classified; E87.1 Hypo-osmolality and hyponatremia; I50.30 Unspecified diastolic (congestive) heart failure; Z79.01 Long term (current) use of anticoagulants; E87.5 Hyperkalemia
CPT/HCPCS: 88305; 32555; 71045; 71275; 80048; 80053; 80061; 83036; 83615; 83880; 84155; 84157; 84443; 84484; 85025; 85027; 85610; 85730; 88112; 92960; 93005; 93306; 96361; 96374; 99285; Q9967

== ENCOUNTER 2024-09-16 09:26 | Day surgery (SDC) | payer OTHER, SELFPAY | END 2024-09-16 10:00 | disposition home or self-care (01) | LOC: CATH 09:26 | PROVIDERS: ATTENDING PHYSICIAN Internal Medicine Cardiovascular Disease; FAMILY PHYSICIAN Family Medicine; OTHER PHYSICIAN Internal Medicine Interventional Cardiology | DX: I48.91 Unspecified atrial fibrillation (principal); Z53.09 Procedure and treatment not carried out because of other contraindication; Z79.01 Long term (current) use of anticoagulants; I35.0 Nonrheumatic aortic (valve) stenosis; I10 Essential (primary) hypertension; E78.5 Hyperlipidemia, unspecified | CPT/HCPCS: 93005 ==